=== PATIENT | female | born 1940 | race Caucasian/White ===

== ENCOUNTER 2017-01-30 19:39 | Emergency (ER) | payer OTHER ==
--- NOTE | 2017-01-30 20:15 | ED NURSING NOTES ---
Clinical Report - Nurses [facility] [address] [place] [address] 01/30/2017 19:39 Patient: JUANPABLO GÓMEZ TRIAGE Triage time 19:45. Acuity: LEVEL 4. Chief Complaint: DOG BITE. --19:59 Kavita Mendes R.N. 19:45 01/30/17. BP: 190/69 taken on the left arm, while lying. HR: 94 (regular and normal rate). RR: 18. O2 saturation: 92% on room air. Temp: 98.3 F (oral). Pain level now: 01/02. --19:59 Kavita Mendes R.N. Weight: 54.4 kg stated. Height/Length: 62 inches Per Patient. BMI: 22. --19:48 Kavita Mendes R.N. Medications MetFORMIN HCl Oral (Tablet 1000 mg) 1 tablet, 2x a day. --19:46 Kavita Mendes R.N. Lisinopril Oral (Tablet 10 mg) 1 tablet, 2x a day. --19:49 Kavita Mendes R.N. Aspirin Oral (Tablet 81 mg) 1 tablet, daily. --19:55 Kavita Mendes R.N. Atorvastatin Calcium Oral (Tablet 40 mg) 1 tablet, at bedtime. --19:55 Kavita Mendes R.N. Flovent HFA Inhalation (Aerosol 44 mcg/act), 2x a day. --19:56 Kavita Mendes R.N. Proventil HFA Inhalation 2 puffs, every 4 hours as needed. --19:56 Kavita Mendes R.N. Levothyroxine Sodium Oral (Tablet 50 mcg) 1 tablet, daily. --19:57 Kavita Mendes R.N. The following entry was struck and corrected by Kavita Mendes R.N., 19:55 (01/30/17) Reason for correction - other(correction). <<STRICKEN ENTRY-- MetFORMIN HCl Oral. --19:46 Kavita Mendes R.N. --END STRIKE>> The following entry was struck by Kavita Mendes R.N., 19:54 (01/30/17) Reason - other(pt found list). <<STRICKEN ENTRY-- BP MED . --19:46 Kavita Mendes R.N. --END STRIKE>> The following entry was struck and corrected by Kavita Mendes R.N., 19:53 (01/30/17) Reason for correction - other(correction). <<STRICKEN ENTRY-- Lisinopril Oral, daily. --19:49 Kavita Mendes R.N. --END STRIKE>>. Allergies No Known Drug Allergy. --19:48 Kavita Mendes R.N. History Arrived by private vehicle. Historian: patient. Accompanied by family. Primary physician (damaris). Location of injuries: right thumb and right index finger. This occurred just prior to arrival. Circumstances: This was a "provoked" attack. (pt grabbed her dog by the collar and he bit her). 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 PAST MEDICAL HX: Tetanus status: unknown. Immunizations: up-to-date. SOCIAL HX: Light tobacco smoker- less than 1/2 a pack per day. No alcohol use or drug use. --19:59 Kavita Mendes R.N. PROBLEMS: Diabetes Mellitus. COPD - Chronic Obstructive Pulmonary Disease. --19:49 Kavita Mendes R.N. Emphysema. Aortic regurgitation. Hyperlipidemia. Hypothyroidism. Cancer. --19:58 Kavita Mendes R.N. ADDITIONAL SURGERIES: Eye surgery. --19:58 Kavita Mendes R.N. Interventions ID band on patient. To treatment room. --19:59 Kavita Mendes R.N. PHYSICAL ASSESSMENT Ambulatory to room. GENERAL / NEURO / PSYCH: Alert. Oriented X 4. Appears in no acute distress. HEENT: Pupils equal, round and reactive to light. Head non-tender. RESPIRATORY: Respirations not labored. Breath sounds within normal limits. CVS: Normal heart rate and rhythm. Pulses within normal limits. Capillary refill less than 2 seconds. GI / : Abdomen soft and nontender. EXTREMITIES: Extremities exhibit normal ROM. Neuro-vascular status intact to the extremity. Right thumb: tenderness and multiple puncture wounds. Right index finger: tenderness and 1.5 cm laceration (bite). SKIN: Skin is warm and dry. --20:00 Kavita eMndes R.N. NURSING PROGRESS NOTES Two patient identifiers checked. Call light placed in reach. Side rails up x 1. Bed placed in lowest position. Brakes of bed on. Patient ready for evaluation- chart flagged. --20:00 Kavita Mendes R.N. 20:12 01/30/2017 Augmentin (Amoxicillin-Pot Clavulanate) PO Tablets 875 mg given. Allergies verified and confirmed 5 rights. --20:14 Kavita Mendes R.N. 20:13 01/30/2017 TDAP IM 0.5 mL given. (Lot#: [id number], expiration date: 12/03/2018, Filling Carrier: sanofi pasteur). Given in the left deltoid. Allergies verified and confirmed 5 rights. Vaccine information statement provided to the patient. --20:13 Kavita Mendes R.N. 20:30. The patient is calm and resting quietly. SKIN: Skin is warm and dry. --20:39 Misael Anderson R.N. ( 2039 Irrigated the wound with Sodium Chlorider and applied bacitracin; dressed wound with non-adherent pad. secured with Kerlix). --21:54 Latasha Arredondo. DISPOSITION / DISCHARGE Departure time: 20:33. Condition at departure: stable. No learning barriers present. Discharge instructions provided and reviewed with the patient. Reviewed medication(s) side effects, precautions, dosing and course information. Prescription(s) given to the patient. Patient verbalized understanding. The patient was discharged home and accompanied by family. She left the Emergency Department ambulatory and via private vehicle. Family member driving. FALL RISK ASSESSMENT: Fall risk assessment completed. No fall risk identified. --20:38 Misael Anderson R.N. Locked/Released at 01/30/2017 22:40 by Misael Anderson R.N.
--- NOTE | 2017-01-30 20:15 | ED NURSING NOTES ---
Clinical Report - Nurses [facility] [address] [place] [address] 01/30/2017 19:39 Patient: JUANPABLO GÓMEZ TRIAGE Triage time 19:45. Acuity: LEVEL 4. Chief Complaint: DOG BITE. --19:59 Kavita Mendes R.N. 19:45 01/30/17. BP: 190/69 taken on the left arm, while lying. HR: 94 (regular and normal rate). RR: 18. O2 saturation: 92% on room air. Temp: 98.3 F (oral). Pain level now: 01/02. --19:59 Kavita Mendes R.N. Weight: 54.4 kg stated. Height/Length: 62 inches Per Patient. BMI: 22. --19:48 Kavita Mendes R.N. Medications MetFORMIN HCl Oral (Tablet 1000 mg) 1 tablet, 2x a day. --19:46 Kavita Mendes R.N. Lisinopril Oral (Tablet 10 mg) 1 tablet, 2x a day. --19:49 Kavita Mendes R.N. Aspirin Oral (Tablet 81 mg) 1 tablet, daily. --19:55 Kavita Mendes R.N. Atorvastatin Calcium Oral (Tablet 40 mg) 1 tablet, at bedtime. --19:55 Kavita Mendes R.N. Flovent HFA Inhalation (Aerosol 44 mcg/act), 2x a day. --19:56 Kavita Mendes R.N. Proventil HFA Inhalation 2 puffs, every 4 hours as needed. --19:56 Kavita Mendes R.N. Levothyroxine Sodium Oral (Tablet 50 mcg) 1 tablet, daily. --19:57 Kavita Mendes R.N. The following entry was struck and corrected by Kavita Mendes R.N., 19:55 (01/30/17) Reason for correction - other(correction). <<STRICKEN ENTRY-- MetFORMIN HCl Oral. --19:46 Kavita Mendes R.N. --END STRIKE>> The following entry was struck by Kavita Mendes R.N., 19:54 (01/30/17) Reason - other(pt found list). <<STRICKEN ENTRY-- BP MED . --19:46 Kavita Mendes R.N. --END STRIKE>> The following entry was struck and corrected by Kavita Mendes R.N., 19:53 (01/30/17) Reason for correction - other(correction). <<STRICKEN ENTRY-- Lisinopril Oral, daily. --19:49 Kavita Mendes R.N. --END STRIKE>>. Allergies No Known Drug Allergy. --19:48 Kavita Mendes R.N. History Arrived by private vehicle. Historian: patient. Accompanied by family. Primary physician (damaris). Location of injuries: right thumb and right index finger. This occurred just prior to arrival. Circumstances: This was a "provoked" attack. (pt grabbed her dog by the collar and he bit her). Treatment RECEPTION INTERVIEWER: None. PAST MEDICAL HX: Tetanus status: unknown. Immunizations: up-to-date. SOCIAL HX: Light tobacco smoker- less than 1/2 a pack per day. No alcohol use or drug use. --19:59 Kavita Mendes R.N. PROBLEMS: Diabetes Mellitus. COPD - Chronic Obstructive Pulmonary Disease. --19:49 Kavita Mendes R.N. Emphysema. Aortic regurgitation. Hyperlipidemia. Hypothyroidism. Cancer. --19:58 Kavita Mendes R.N. ADDITIONAL SURGERIES: Eye surgery. --19:58 Kavita Mendes R.N. Interventions ID band on patient. To treatment room. --19:59 Kavita Mendes R.N. PHYSICAL ASSESSMENT Ambulatory to room. GENERAL / NEURO / PSYCH: Alert. Oriented X 4. Appears in no acute distress. HEENT: Pupils equal, round and reactive to light. Head non-tender. RESPIRATORY: Respirations not labored. Breath sounds within normal limits. CVS: Normal heart rate and rhythm. Pulses within normal limits. Capillary refill less than 2 seconds. GI / : Abdomen soft and nontender. EXTREMITIES: Extremities exhibit normal ROM. Neuro-vascular status intact to the extremity. Right thumb: tenderness and multiple puncture wounds. Right index finger: tenderness and 1.5 cm laceration (bite). SKIN: Skin is warm and dry. --20:00 Kavita Mendes R.N. NURSING PROGRESS NOTES Two patient identifiers checked. Call light placed in reach. Side rails up x 1. Bed placed in lowest position. Brakes of bed on. Patient ready for evaluation- chart flagged. --20:00 Kavita Mendes R.N. 20:12 01/30/2017 Augmentin (Amoxicillin-Pot Clavulanate) PO Tablets 875 mg given. Allergies verified and confirmed 5 rights. --20:14 Kavita Mendes R.N. 20:13 01/30/2017 TDAP IM 0.5 mL given. (Lot#: [id number], expiration date: 12/03/2018, Explosive Ordnance Disposal Technician: sanofi pasteur). Given in the left deltoid. Allergies verified and confirmed 5 rights. Vaccine information statement provided to the patient. --20:13 Kavita Mendes R.N. 20:30. The patient is calm and resting quietly. SKIN: Skin is warm and dry. --20:39 Misael Anderson R.N. ( 2039 Irrigated the wound with Sodium Chlorider and applied bacitracin; dressed wound with non-adherent pad. secured with Kerlix). --21:54 Latasha Arredondo. DISPOSITION / DISCHARGE Departure time: 20:33. Condition at departure: stable. No learning barriers present. Discharge instructions provided and reviewed with the patient. Reviewed medication(s) side effects, precautions, dosing and course information. Prescription(s) given to the patient. Patient verbalized understanding. The patient was discharged home and accompanied by family. She left the Emergency Department ambulatory and via private vehicle. Family member driving. FALL RISK ASSESSMENT: Fall risk assessment completed. No fall risk identified. --20:38 Misael Anderson R.N. Locked/Released at 01/30/2017 22:40 by Misael Anderson R.N.
--- NOTE | 2017-01-30 20:15 | ED CLINICAL REPORT ---
Clinical Report - Physicians/Mid Levels [facility] [address] [place] [address] 01/30/2017 19:39 Patient: JUANPABLO GÓMEZ Time Seen: 19:44 Jan 30 2017. Arrived- By private vehicle. Historian- patient. HISTORY OF PRESENT ILLNESS Location of injuries- right thumb and right 2nd finger. Chief Complaint: DOG BITE. The injury occurred just prior to arrival. Occurred at home. This was a "provoked" attack. (grabbed dog by collar). 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 Patient is unsure of her last disposition. Bite occured just prior to arrival.). REVIEW OF SYSTEMS No numbness, headache or fever. All systems otherwise negative, except as recorded above. PAST HISTORY See nurses notes. Problems: Emphysema. Aortic regurgitation. Hyperlipidemia. Hypothyroidism. Cancer. Diabetes Mellitus. COPD - Chronic Obstructive Pulmonary Disease. Additional Surgeries: Eye surgery. Medications: Levothyroxine Sodium Oral (Tablet 50 mcg) 1 tablet, daily. Proventil HFA Inhalation 2 puffs, every 4 hours as needed. Flovent HFA Inhalation (Aerosol 44 mcg/act), 2x a day. Atorvastatin Calcium Oral (Tablet 40 mg) 1 tablet, at bedtime. Aspirin Oral (Tablet 81 mg) 1 tablet, daily. Lisinopril Oral (Tablet 10 mg) 1 tablet, 2x a day. MetFORMIN HCl Oral (Tablet 1000 mg) 1 tablet, 2x a day. Allergies: No Known Drug Allergy. SOCIAL HISTORY Current every day smoker. No alcohol use or drug use. PHYSICAL EXAM Appearance: Alert. No acute distress. ENT: Ears normal on inspection. Nose normal on inspection. Neck: Normal inspection. Neck non-tender. CVS: Heart sounds normal. Pulses normal. Respiratory: Breath sounds normal. Chest nontender. Back: Normal inspection. Extremities: Right hand: multiple puncture wounds. (small evans lac partial thickness, well approximated, full rom distally, no erythema, no fb, no drainage. Pt with small puncture on dorsal of right thumb.). Pelvis stable. Neuro: Oriented X 3. No motor deficit. PROGRESS AND PROCEDURES Course of Care: wound copiously irrigated and patient started on Augmentin. No erythema currently. No signs of foreign object. Full range of motion, no signs of tenosynovitis. Patient stable. Fall palpation. Patient is stable. Patient/family counseled. Disposition: Discharged. Condition: good. CLINICAL IMPRESSION Dog bite to the right thumb and right index finger. INSTRUCTIONS Protect wound and keep wound area clean. Apply bacitracin twice daily. Warnings: TETANUS: You were given a tetanus shot during your visit. Make a note for future reference. Prescription Medications: Augmentin 875 mg: take 1 tablet orally every 12 hours for 10 days. No refill. Substitution is permissible. Follow-up: Follow up with your doctor in two days for wound check. (Electronically signed by Shea Pascual P.A.-C 01/30/2017 20:25)
--- NOTE | 2017-01-30 20:15 | ED ORDER SUMMARY ---
..... Patient: JUANPABLO GÓMEZ OrderSheet [facility] VisitID: [id number] [address] [place] [address] 76y, F Registration Date/Time: 01/30/2017 ORDER SHEET Weight: 54.4 kg (stated) Allergies: No Known Drug Allergy GENERAL ORDERS: MEDICATION ORDERS: Tdap IM 0.5 mL (NOW, per protocol) (20:01 01/30/2017 Tasha P.A.-C) (Ack 20:05 CBradburn R.N.) (20:13 CBradburn R.N.) Augmentin PO 875 mg (NOW) (20:01/30/2017 Tasha P.A.-C) (Ack 20:05 CBradburn R.N.) (20:14 CBradburn R.N.) IV FLUIDS: ORDER SHEET NOTES: [Electronically signed by Shea Pascual-Stephen (20:25 01/30/2017)] [Electronically signed by Misael Anderson R.N. (22:40 01/30/2017)] [Electronically locked/signed by Misael Anderson R.N. (22:40 01/30/2017)]
--- NOTE | 2017-01-30 20:15 | ED ORDER SUMMARY ---
..... Patient: JUANPABLO GÓMEZ OrderSheet [facility] VisitID: [id number] [address] [place] [address] 76y, F Registration Date/Time: 01/30/2017 ORDER SHEET Weight: 54.4 kg (stated) Allergies: No Known Drug Allergy GENERAL ORDERS: MEDICATION ORDERS: Tdap IM 0.5 mL (NOW, per protocol) (20:01 01/30/2017 Tasha P.A.-C) (Ack 20:05 CBradburn R.N.) (20:13 CBradburn R.N.) Augmentin PO 875 mg (NOW) (20:01/30/2017 Tasha P.A.-C) (Ack 20:05 CBradburn R.N.) (20:14 CBradburn R.N.) IV FLUIDS: ORDER SHEET NOTES: [Electronically signed by Shea Pascual-Stephen (20:25 01/30/2017)] [Electronically signed by Misael Anderson R.N. (22:40 01/30/2017)] [Electronically locked/signed by Misael Anderson R.N. (22:40 01/30/2017)]
--- NOTE | 2017-01-30 20:15 | ED CLINICAL REPORT ---
Clinical Report - Physicians/Mid Levels [facility] [address] [place] [address] 01/30/2017 19:39 Patient: JUANPABLO GÓMEZ Time Seen: 19:44 Jan 30 2017. Arrived- By private vehicle. Historian- patient. HISTORY OF PRESENT ILLNESS Location of injuries- right thumb and right 2nd finger. Chief Complaint: DOG BITE. The injury occurred just prior to arrival. Occurred at home. This was a "provoked" attack. (grabbed dog by collar). 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 Patient is unsure of her last disposition. Bite occured just prior to arrival.). REVIEW OF SYSTEMS No numbness, headache or fever. All systems otherwise negative, except as recorded above. PAST HISTORY See nurses notes. Problems: Emphysema. Aortic regurgitation. Hyperlipidemia. Hypothyroidism. Cancer. Diabetes Mellitus. COPD - Chronic Obstructive Pulmonary Disease. Additional Surgeries: Eye surgery. Medications: Levothyroxine Sodium Oral (Tablet 50 mcg) 1 tablet, daily. Proventil HFA Inhalation 2 puffs, every 4 hours as needed. Flovent HFA Inhalation (Aerosol 44 mcg/act), 2x a day. Atorvastatin Calcium Oral (Tablet 40 mg) 1 tablet, at bedtime. Aspirin Oral (Tablet 81 mg) 1 tablet, daily. Lisinopril Oral (Tablet 10 mg) 1 tablet, 2x a day. MetFORMIN HCl Oral (Tablet 1000 mg) 1 tablet, 2x a day. Allergies: No Known Drug Allergy. SOCIAL HISTORY Current every day smoker. No alcohol use or drug use. PHYSICAL EXAM Appearance: Alert. No acute distress. ENT: Ears normal on inspection. Nose normal on inspection. Neck: Normal inspection. Neck non-tender. CVS: Heart sounds normal. Pulses normal. Respiratory: Breath sounds normal. Chest nontender. Back: Normal inspection. Extremities: Right hand: multiple puncture wounds. (small evans lac partial thickness, well approximated, full rom distally, no erythema, no fb, no drainage. Pt with small puncture on dorsal of right thumb.). Pelvis stable. Neuro: Oriented X 3. No motor deficit. PROGRESS AND PROCEDURES Course of Care: wound copiously irrigated and patient started on Augmentin. No erythema currently. No signs of foreign object. Full range of motion, no signs of tenosynovitis. Patient stable. Fall palpation. Patient is stable. Patient/family counseled. Disposition: Discharged. Condition: good. CLINICAL IMPRESSION Dog bite to the right thumb and right index finger. INSTRUCTIONS Protect wound and keep wound area clean. Apply bacitracin twice daily. Warnings: TETANUS: You were given a tetanus shot during your visit. Make a note for future reference. Prescription Medications: Augmentin 875 mg: take 1 tablet orally every 12 hours for 10 days. No refill. Substitution is permissible. Follow-up: Follow up with your doctor in two days for wound check. (Electronically signed by Shea Pascual P.A.-C 01/30/2017 20:25)
--- NOTE | 2017-01-30 22:40 | ED MED RECONCILIATION SUMMARY ---
Patient: JUANPABLO GÓMEZ Medication Reconciliation Report [facility] VisitID: [id number] [place] [address] 76y, F Registration Date/Time: 01/30/2017 Weight: 54.4 kg Height/Length: 62 in. BMI: 22.0 ALLERGIES: No Known Drug Allergy The patient's Home Medications are listed below: THE FOLLOWING MEDICATIONS NEED TO BE RECONCILED: Aspirin Oral (81 mg) 1 tablet, daily Atorvastatin Calcium Oral (40 mg) 1 tablet, at bedtime Flovent HFA Inhalation (44 mcg/act), 2x a day Levothyroxine Sodium Oral (50 mcg) 1 tablet, daily Lisinopril Oral (10 mg) 1 tablet, 2x a day MetFORMIN HCl Oral (1000 mg) 1 tablet, 2x a day Proventil HFA Inhalation 2 puffs, every 4 hours The source(s) of the original Home Medication information: Not obtained. The following Medications were given to the patient in the Emergency Department: TDAP [IM] IM 0.5 mL, administered: 01/30/2017 8:13:00 PM Augmentin [PO] PO 875 mg, administered: 01/30/2017 8:12:00 PM The following Medications were prescribed to the patient: Augmentin 875 mg: take 1 tablet orally every 12 hours for 10 days. No refill. Substitution is permissible. -- Shea Pascual P.A.-C
--- NOTE | 2017-01-30 22:40 | ED MED RECONCILIATION SUMMARY ---
Patient: JUANPABLO GMÓEZ Medication Reconciliation Report [facility] VisitID: [id number] [place] [address] 76y, F Registration Date/Time: 01/30/2017 Weight: 54.4 kg Height/Length: 62 in. BMI: 22.0 ALLERGIES: No Known Drug Allergy The patient's Home Medications are listed below: THE FOLLOWING MEDICATIONS NEED TO BE RECONCILED: Aspirin Oral (81 mg) 1 tablet, daily Atorvastatin Calcium Oral (40 mg) 1 tablet, at bedtime Flovent HFA Inhalation (44 mcg/act), 2x a day Levothyroxine Sodium Oral (50 mcg) 1 tablet, daily Lisinopril Oral (10 mg) 1 tablet, 2x a day MetFORMIN HCl Oral (1000 mg) 1 tablet, 2x a day Proventil HFA Inhalation 2 puffs, every 4 hours The source(s) of the original Home Medication information: Not obtained. The following Medications were given to the patient in the Emergency Department: TDAP [IM] IM 0.5 mL, administered: 01/30/2017 8:13:00 PM Augmentin [PO] PO 875 mg, administered: 01/30/2017 8:12:00 PM The following Medications were prescribed to the patient: Augmentin 875 mg: take 1 tablet orally every 12 hours for 10 days. No refill. Substitution is permissible. -- Shea Pascual P.A.-C
--- NOTE | 2017-01-30 22:40 | ED DISCHARGE INSTRUCTIONS ---
Patient: JUANPABLO GÓMEZ General Instructions [facility] VisitID: [id number] [place] [address] 76y, F Registration Date/Time: 01/30/2017 Dog bite to the right thumb and right index finger. INSTRUCTIONS Protect wound and keep wound area clean. Apply bacitracin twice daily. Warnings: TETANUS: You were given a tetanus shot during your visit. Make a note for future reference. Prescription Medications: Augmentin 875 mg: take 1 tablet orally every 12 hours for 10 days. No refill. Substitution is permissible. Follow-up: Follow up with your doctor in two days for wound check. ADDITIONAL INFORMATION Animal Bite, General If you have been bitten by an animal and the wound is deep enough to break the skin, an infection may occur. Therefore, watch for the warning signs listed below. If a cut (laceration) was present, the doctor may not close the wound completely. This is to allow fluid to drain in the event of an infection. Home Care: Watch the wound for signs of infection listed below which may begin within6 hours after the bite and progress rapidly. In certain types of bites, antibiotics may be prescribed. Begin taking these as soon as possible until they are all gone. Rabies Prevention If you live in an area where rabies occurs in the wild animals, if you were bitten by a dog, cat, skunk, raccoon, chowdhury, coyote, bobcat, woodchuck, bat, or other meat-eating animal, there may be some risk to you of getting the rabies virus. If a healthy-looking pet dog or cat has bitten you, it should be kept in a secure area for the next 10 days to watch for signs of illness. (If the pet box truck owner operator wont cooperate with you, contact the animal control department.) If the dog or cat becomes ill or dies during that time, contact your county animal control department at once so the animal may be tested for rabies. If the pet stays healthy for the next10 days, there is no danger of rabies in the animal or you. Pets fully vaccinated against rabies (2 shots) are at very low risk of infection; however, because human rabies is almost always fatal,any biting pet should be confined for10 days as an extra precaution. If astray pet bit you, contact the animal control department. They can provide information on capture, quarantine, and animal rabies testing. If you are unable to locate the animal that bit you in the next2 days, and if rabies exists in your region, you must be evaluated for the rabies vaccine series. Contact your doctor or return here promptly. All animal bites should be reported to the [facility] animal control department. If you were not given a form to fill out, you can report this yourself. Follow Up with your doctor or this facility as directed. Most skin wounds heal [id number] days. However, an infection may occur even with proper treatment. Check your wound every 6 hours for the first 2 days, then at least once a day for the next several days for the signs of infection listed below. Get Prompt Medical Attention if any of the following occur: Signs of infection: Spreading redness from the wound Increased pain or swelling Fever of 100.4F (38C) or higher, or as directed by your healthcare provider Colored fluid or pus draining from the wound Headache, confusion, strange behavior, or seizure (signs of a rabies infection) Dog Bite If a dog has bitten you and the wound is deep enough to break the skin, an infection may occur. Therefore, you should watch for the warning signs listed below. The doctor may not close the wound completely. This is to allow fluid to drain in the event of an infection. Home Care Watch the wound for signs of infection listed below. In certain types of bites, antibiotics may be prescribed. Begin taking these as soon as possible, as directed until they are all gone. Rabies Prevention If you live in an area where rabies occurs in wild animals, the rabies virus can be passed to cats and dogs. An infected animal can pass the rabies virus to you during a bite. If ahealthy-looking pet dog has bitten you, it should be kept in a secure area for the next 10 days to watch for signs of illness. If the pet box truck owner operator wont cooperate with you, contact the [facility] animal control department (or local law enforcement). If the animal becomes ill or dies [id number] days, contact your animal control department at once. The animal must be tested for rabies. If the animal stays healthy for the next 10 days, then there is no danger of rabies in the dog or you. Pets fully vaccinated against rabies (2 shots) are at very low risk for the infection. However, because human rabies is almost always fatal, any biting dog should be kept in confinement for 10 days as an extra precaution. If a stray dog bit you, contact the animal control department. They can provide information on capture, quarantine, and animal rabies testing. If you are unable to locate the animal that bit you in the next 2days, and if rabies exists in your region, you must be evaluated for the rabies vaccine series. Contact your doctor or return here promptly. All animal bites should be reported to the [facility] animal control department. If you were not given a form to fill out, you can report it yourself by calling. Follow Up with your doctor as advised. Most skin wounds heal within 10 days. However, an infection may occur even with proper treatment. Check your woundevery 6 hoursfor 2 days, then at least once a day for the next two days for the signs of infection listed below. Get Prompt Medical Attention if any of the following occur: Signs of infection: Spreading redness Increased pain or swelling Fever of 100.4F (38C) or higher, or as directed by your healthcare provider Colored fluid or pus draining from the wound Headache, confusion, strange behavior, or a seizure (signs of a rabies infection) Diphtheria Toxoid Adsorbed, Tetanus Toxoid, Adsorbed Suspension for injection What is this medicine? DIPHTHERIA AND TETANUS TOXOIDS ADSORBED (dif THEER ee uh and TET n us TOK soids ad SAWRB) is a vaccine. It is used to prevent infections of diphtheria and tetanus (jennifer). How should I use this medicine? This vaccine is for injection into a muscle. It is given by a health career representative. A copy of Vaccine Information Statements will be given before each vaccination. Read this sheet carefully each time. The sheet may change frequently. Talk to your magnetic healer regarding the use of this medicine in children. While this drug may be prescribed for selected conditions, precautions do apply. What side effects may I notice from receiving this medicine? Side effects that you should report to your doctor or health career representative as soon as possible: allergic reactions like skin rash, itching or hives, swelling of the face, lips, or tongue arthritis pain breathing problems changes in hearing extreme changes in behavior fast, irregular heartbeat fever over 100 degrees F pain, tingling, numbness in the hands or feet seizures unusually weak or tired Side effects that usually do not require medical attention (report to your doctor or health career representative if they continue or are bothersome): aches or pains bruising, pain, swelling at site where injected headache loss of appetite low-grade fever of 100 degrees F or less nausea, vomiting sleepy swollen glands What may interact with this medicine? adalimumab anakinra infliximab live vaccines medicines that suppress your immune system medicines to treat cancer medicines that treat or prevent blood clots like daily aspirin, enoxaparin, heparin, ticlopidine, warfarin radiopharmaceuticals like iodine I-125 or I-131 What if I miss a dose? Keep appointments for follow-up (booster) doses as directed. It is important not to miss your dose. Call your doctor or health career representative if you are unable to keep an appointment. Where should I keep my medicine? This drug is given in a hospital or clinic and will not be stored at home. What should I tell my health care provider before I take this medicine? They need to know if you have any of these conditions: bleeding disorder immune system problems infection with fever low levels of platelets in the blood an unusual or allergic reaction to diphtheria or tetanus toxoid, latex, thimerosal, other medicines, foods, dyes, or preservatives or trying to get breast-feeding What should I watch for while using this medicine? Contact your doctor or health career representative and seek emergency medical care if any serious side effects occur. This vaccine, like all vaccines, may not fully protect everyone. Amoxicillin Trihydrate, Clavulanate Potassium Oral tablet What is this medicine? AMOXICILLIN; CLAVULANIC ACID (a mox i CELESTINA in; KLAV gualberto lucita ic id) is a penicillin antibiotic. It is used to treat certain kinds of bacterial infections. It will not work for colds, flu, or other viral infections. How should I use this medicine? Take this medicine by mouth with a full glass of water. Follow the directions on the prescription label. Take at the start of a meal. Do not crush or chew. If the tablet has a score line, you may cut it in half at the score line for easier swallowing. Take your medicine at regular intervals. Do not take your medicine more often than directed. Take all of your medicine as directed even if you think you are better. Do not skip doses or stop your medicine early. Talk to your magnetic healer regarding the use of this medicine in children. Special care may be needed. What side effects may I notice from receiving this medicine? Side effects that you should report to your doctor or health career representative as soon as possible: allergic reactions like skin rash, itching or hives, swelling of the face, lips, or tongue breathing problems dark urine fever or chills, sore throat redness, blistering, peeling or loosening of the skin, including inside the mouth seizures trouble passing urine or change in the amount of urine unusual bleeding, bruising unusually weak or tired white patches or sores in the mouth or throat Side effects that usually do not require medical attention (report to your doctor or health career representative if they continue or are bothersome): diarrhea dizziness headache nausea, vomiting stomach upset vaginal or anal irritation What may interact with this medicine? allopurinol anticoagulants control pills methotrexate probenecid What if I miss a dose? If you miss a dose, take it as soon as you can. If it is almost time for your next dose, take only that dose. Do not take double or extra doses. Where should I keep my medicine? Keep out of the reach of children. Store at room temperature below 25 degrees C (77 degrees F). Keep container tightly closed. Throw away any unused medicine after the expiration date. What should I tell my health care provider before I take this medicine? They need to know if you have any of these conditions: bowel disease, like colitis kidney disease liver disease mononucleosis an unusual or allergic reaction to amoxicillin, penicillin, cephalosporin, other antibiotics, clavulanic acid, other medicines, foods, dyes, or preservatives or trying to get breast-feeding What should I watch for while using this medicine? Tell your doctor or health career representative if your symptoms do not improve. Do not treat diarrhea with over the counter products. Contact your doctor if you have diarrhea that lasts more than 2 days or if it is severe and watery. If you have diabetes, you may get a false-positive result for sugar in your urine. Check with your doctor or health career representative. control pills may not work properly while you are taking this medicine. Talk to your doctor about using an extra method of control. You have been given the following additional information: Animal Bite, General Dog Bite Diphtheria Toxoid Adsorbed, Tetanus Toxoid, Adsorbed Suspension for injection Amoxicillin Trihydrate, Clavulanate Potassium Oral tablet (Electronically signed by Shea Pascual P.A.-C 01/30/2017 20:25)
--- NOTE | 2017-01-30 22:40 | ED DISCHARGE INSTRUCTIONS ---
Patient: JUANPABLO GÓMEZ General Instructions [facility] VisitID: [id number] [place] [address] 76y, F Registration Date/Time: 01/30/2017 Dog bite to the right thumb and right index finger. INSTRUCTIONS Protect wound and keep wound area clean. Apply bacitracin twice daily. Warnings: TETANUS: You were given a tetanus shot during your visit. Make a note for future reference. Prescription Medications: Augmentin 875 mg: take 1 tablet orally every 12 hours for 10 days. No refill. Substitution is permissible. Follow-up: Follow up with your doctor in two days for wound check. ADDITIONAL INFORMATION Animal Bite, General If you have been bitten by an animal and the wound is deep enough to break the skin, an infection may occur. Therefore, watch for the warning signs listed below. If a cut (laceration) was present, the doctor may not close the wound completely. This is to allow fluid to drain in the event of an infection. Home Care: Watch the wound for signs of infection listed below which may begin within6 hours after the bite and progress rapidly. In certain types of bites, antibiotics may be prescribed. Begin taking these as soon as possible until they are all gone. Rabies Prevention If you live in an area where rabies occurs in the wild animals, if you were bitten by a dog, cat, skunk, raccoon, chowdhury, coyote, bobcat, woodchuck, bat, or other meat-eating animal, there may be some risk to you of getting the rabies virus. If a healthy-looking pet dog or cat has bitten you, it should be kept in a secure area for the next 10 days to watch for signs of illness. (If the pet inverter and clipper wont cooperate with you, contact the animal control department.) If the dog or cat becomes ill or dies during that time, contact your county animal control department at once so the animal may be tested for rabies. If the pet stays healthy for the next10 days, there is no danger of rabies in the animal or you. Pets fully vaccinated against rabies (2 shots) are at very low risk of infection; however, because human rabies is almost always fatal,any biting pet should be confined for10 days as an extra precaution. If astray pet bit you, contact the animal control department. They can provide information on capture, quarantine, and animal rabies testing. If you are unable to locate the animal that bit you in the next2 days, and if rabies exists in your region, you must be evaluated for the rabies vaccine series. Contact your doctor or return here promptly. All animal bites should be reported to the [facility] animal control department. If you were not given a form to fill out, you can report this yourself. Follow Up with your doctor or this facility as directed. Most skin wounds heal [id number] days. However, an infection may occur even with proper treatment. Check your wound every 6 hours for the first 2 days, then at least once a day for the next several days for the signs of infection listed below. Get Prompt Medical Attention if any of the following occur: Signs of infection: Spreading redness from the wound Increased pain or swelling Fever of 100.4F (38C) or higher, or as directed by your healthcare provider Colored fluid or pus draining from the wound Headache, confusion, strange behavior, or seizure (signs of a rabies infection) Dog Bite If a dog has bitten you and the wound is deep enough to break the skin, an infection may occur. Therefore, you should watch for the warning signs listed below. The doctor may not close the wound completely. This is to allow fluid to drain in the event of an infection. Home Care Watch the wound for signs of infection listed below. In certain types of bites, antibiotics may be prescribed. Begin taking these as soon as possible, as directed until they are all gone. Rabies Prevention If you live in an area where rabies occurs in wild animals, the rabies virus can be passed to cats and dogs. An infected animal can pass the rabies virus to you during a bite. If ahealthy-looking pet dog has bitten you, it should be kept in a secure area for the next 10 days to watch for signs of illness. If the pet inverter and clipper wont cooperate with you, contact the [facility] animal control department (or local law enforcement). If the animal becomes ill or dies [id number] days, contact your animal control department at once. The animal must be tested for rabies. If the animal stays healthy for the next 10 days, then there is no danger of rabies in the dog or you. Pets fully vaccinated against rabies (2 shots) are at very low risk for the infection. However, because human rabies is almost always fatal, any biting dog should be kept in confinement for 10 days as an extra precaution. If a stray dog bit you, contact the animal control department. They can provide information on capture, quarantine, and animal rabies testing. If you are unable to locate the animal that bit you in the next 2days, and if rabies exists in your region, you must be evaluated for the rabies vaccine series. Contact your doctor or return here promptly. All animal bites should be reported to the [facility] animal control department. If you were not given a form to fill out, you can report it yourself by calling. Follow Up with your doctor as advised. Most skin wounds heal within 10 days. However, an infection may occur even with proper treatment. Check your woundevery 6 hoursfor 2 days, then at least once a day for the next two days for the signs of infection listed below. Get Prompt Medical Attention if any of the following occur: Signs of infection: Spreading redness Increased pain or swelling Fever of 100.4F (38C) or higher, or as directed by your healthcare provider Colored fluid or pus draining from the wound Headache, confusion, strange behavior, or a seizure (signs of a rabies infection) Diphtheria Toxoid Adsorbed, Tetanus Toxoid, Adsorbed Suspension for injection What is this medicine? DIPHTHERIA AND TETANUS TOXOIDS ADSORBED (dif THEER ee uh and TET n us TOK soids ad SAWRB) is a vaccine. It is used to prevent infections of diphtheria and tetanus (jennifer). How should I use this medicine? This vaccine is for injection into a muscle. It is given by a health managed care manager. A copy of Vaccine Information Statements will be given before each vaccination. Read this sheet carefully each time. The sheet may change frequently. Talk to your broom maker regarding the use of this medicine in children. While this drug may be prescribed for selected conditions, precautions do apply. What side effects may I notice from receiving this medicine? Side effects that you should report to your doctor or health managed care manager as soon as possible: allergic reactions like skin rash, itching or hives, swelling of the face, lips, or tongue arthritis pain breathing problems changes in hearing extreme changes in behavior fast, irregular heartbeat fever over 100 degrees F pain, tingling, numbness in the hands or feet seizures unusually weak or tired Side effects that usually do not require medical attention (report to your doctor or health managed care manager if they continue or are bothersome): aches or pains bruising, pain, swelling at site where injected headache loss of appetite low-grade fever of 100 degrees F or less nausea, vomiting sleepy swollen glands What may interact with this medicine? adalimumab anakinra infliximab live vaccines medicines that suppress your immune system medicines to treat cancer medicines that treat or prevent blood clots like daily aspirin, enoxaparin, heparin, ticlopidine, warfarin radiopharmaceuticals like iodine I-125 or I-131 What if I miss a dose? Keep appointments for follow-up (booster) doses as directed. It is important not to miss your dose. Call your doctor or health managed care manager if you are unable to keep an appointment. Where should I keep my medicine? This drug is given in a hospital or clinic and will not be stored at home. What should I tell my health care provider before I take this medicine? They need to know if you have any of these conditions: bleeding disorder immune system problems infection with fever low levels of platelets in the blood an unusual or allergic reaction to diphtheria or tetanus toxoid, latex, thimerosal, other medicines, foods, dyes, or preservatives or trying to get breast-feeding What should I watch for while using this medicine? Contact your doctor or health managed care manager and seek emergency medical care if any serious side effects occur. This vaccine, like all vaccines, may not fully protect everyone. Amoxicillin Trihydrate, Clavulanate Potassium Oral tablet What is this medicine? AMOXICILLIN; CLAVULANIC ACID (a mox i CELESTINA in; KLAV gualberto lucita ic id) is a penicillin antibiotic. It is used to treat certain kinds of bacterial infections. It will not work for colds, flu, or other viral infections. How should I use this medicine? Take this medicine by mouth with a full glass of water. Follow the directions on the prescription label. Take at the start of a meal. Do not crush or chew. If the tablet has a score line, you may cut it in half at the score line for easier swallowing. Take your medicine at regular intervals. Do not take your medicine more often than directed. Take all of your medicine as directed even if you think you are better. Do not skip doses or stop your medicine early. Talk to your broom maker regarding the use of this medicine in children. Special care may be needed. What side effects may I notice from receiving this medicine? Side effects that you should report to your doctor or health managed care manager as soon as possible: allergic reactions like skin rash, itching or hives, swelling of the face, lips, or tongue breathing problems dark urine fever or chills, sore throat redness, blistering, peeling or loosening of the skin, including inside the mouth seizures trouble passing urine or change in the amount of urine unusual bleeding, bruising unusually weak or tired white patches or sores in the mouth or throat Side effects that usually do not require medical attention (report to your doctor or health managed care manager if they continue or are bothersome): diarrhea dizziness headache nausea, vomiting stomach upset vaginal or anal irritation What may interact with this medicine? allopurinol anticoagulants control pills methotrexate probenecid What if I miss a dose? If you miss a dose, take it as soon as you can. If it is almost time for your next dose, take only that dose. Do not take double or extra doses. Where should I keep my medicine? Keep out of the reach of children. Store at room temperature below 25 degrees C (77 degrees F). Keep container tightly closed. Throw away any unused medicine after the expiration date. What should I tell my health care provider before I take this medicine? They need to know if you have any of these conditions: bowel disease, like colitis kidney disease liver disease mononucleosis an unusual or allergic reaction to amoxicillin, penicillin, cephalosporin, other antibiotics, clavulanic acid, other medicines, foods, dyes, or preservatives or trying to get breast-feeding What should I watch for while using this medicine? Tell your doctor or health managed care manager if your symptoms do not improve. Do not treat diarrhea with over the counter products. Contact your doctor if you have diarrhea that lasts more than 2 days or if it is severe and watery. If you have diabetes, you may get a false-positive result for sugar in your urine. Check with your doctor or health managed care manager. control pills may not work properly while you are taking this medicine. Talk to your doctor about using an extra method of control. You have been given the following additional information: Animal Bite, General Dog Bite Diphtheria Toxoid Adsorbed, Tetanus Toxoid, Adsorbed Suspension for injection Amoxicillin Trihydrate, Clavulanate Potassium Oral tablet (Electronically signed by Shea Pascual P.A.-C 01/30/2017 20:25)
--- NOTE | 2017-01-30 22:40 | ED MAR SUMMARY ---
..... Medication Administration Record [facility] [address] [place] [address] Patient: JUANPABLO GÓMEZ Visit ID: [id number] 76y, F Weight: 54.4 kg Height/Length: 62 in BMI: 22 ALLERGIES: No Known Drug Allergy Given 20:12 01/30/2017 Kavita Mendes RAlexandrea Medication Administered: AUGMENTIN [PO] (AMOXICILLIN-POT CLAVULANATE), Dose: 875 mg Tablets PO. Medication Ordered: Augmentin PO 875 mg (NOW). Given 20:13 01/30/2017 Kavita Mendes, RPinaN. Medication Administered: TDAP [IM], Dose: 0.5 mL IM. Medication Ordered: Tdap IM 0.5 mL (NOW, per protocol).
--- NOTE | 2017-01-30 22:40 | ED MAR SUMMARY ---
..... Medication Administration Record [facility] [address] [place] [address] Patient: JUANPABLO GÓMEZ Visit ID: [id number] 76y, F Weight: 54.4 kg Height/Length: 62 in BMI: 22 ALLERGIES: No Known Drug Allergy Given 20:12 01/30/2017 Kavita Mendes RAlexandrea Medication Administered: AUGMENTIN [PO] (AMOXICILLIN-POT CLAVULANATE), Dose: 875 mg Tablets PO. Medication Ordered: Augmentin PO 875 mg (NOW). Given 20:13 01/30/2017 Kavita Mendes, RPinaN. Medication Administered: TDAP [IM], Dose: 0.5 mL IM. Medication Ordered: Tdap IM 0.5 mL (NOW, per protocol).
== END 2017-01-30 20:33 | disposition home or self-care (01) ==
LOC: ED SRH 19:39
DX: S61.051A Open bite of right thumb without damage to nail, initial encounter (principal); S61.250A Open bite of right index finger without damage to nail, initial encounter; W54.0XXA Bitten by dog, initial encounter; Y93.9 Activity, unspecified; Y92.9 Unspecified place or not applicable; Y99.9 Unspecified external cause status; Z23 Encounter for immunization; J44.9 Chronic obstructive pulmonary disease, unspecified; E11.9 Type 2 diabetes mellitus without complications; E78.5 Hyperlipidemia, unspecified